=== PATIENT | female | born 1965 | race Caucasian/White ===

== ENCOUNTER 2016-12-26 10:55 | Inpatient (IN) | payer OTHER ==
[~2016-12-26] VITALS: Ht 162.6 cm; Wt 78.2 kg
[2016-12-26 12:02] LABS: BASOPHIL 0.2 % (0-2); EOSINOPHIL 0.2 % (0-5); HCT 29.1 % (37.0-47.0); MCH 34.6 pg (25.0-31.0); MCHC 34.4 g/dL (32.0-36.0); MCV 100.7 fL (78.0-100.0); MONOCYTE 8.5 % (0-12); NEUTROPHIL 79.1 % (41-80); PLT 315 K/uL (150-400); RBC 2.89 M/uL (4.20-5.40); RDW 13.1 % (11.5-14.0)
[2016-12-26 12:17] LABS: ALBUMIN 2.6 g/dL (3.5-5.0); BILIRUBIN - TOTAL 0.2 mg/dL (0.1-1.0); CREATININE 1.1 mg/dL (0.5-1.0); GLOBULIN (CALCULATION) 2.4 g/dL (2.2-4.2); POTASSIUM 3.3 mmol/L (3.5-5.1)
[2016-12-26 13:32] LABS: BILIRUBIN NEGATIVE (NEGATIVE); BLOOD TRACE-INTACT Ery/uL (NEGATIVE); CLARITY CLEAR (CLEAR); COLOR YELLOW (YELLOW); GLUCOSE (U) NORMAL (NORMAL); KETONE (U) TRACE mg/dL (NEGATIVE); LEUKOCYTES 2+ Leu/uL (NEGATIVE); NITRITE POSITIVE (NEGATIVE); PROTEIN 2+ mg/dL (NEGATIVE); UROBILINOGEN 0.2 mg/dL (0.2-1.0); pH 5.5 (5.0-9.0)
[2016-12-26 13:38] LABS: URINARY WBC 20-50
[2016-12-26 13:39] LABS: BACTERIA 4+; SQUAMOUS EPITHELIAL CELLS 20-50
[2016-12-26 15:47] LABS: LACTIC ACID 0.6 mmol/L (0.5-2.2)
[2016-12-27 04:52] LABS: HCT 27.1 % (37.0-47.0); HGB 9.1 g/dl (12.5-16.0); MCH 33.8 pg (25.0-31.0); MCHC 33.6 g/dL (32.0-36.0); MCV 100.7 fL (78.0-100.0); RBC 2.69 M/uL (4.20-5.40); WBC 5.6 K/uL (4.0-10.5)
[2016-12-27 05:10] LABS: CREATININE 1.1 mg/dL (0.5-1.0); POTASSIUM 3.7 mmol/L (3.5-5.1)
[2016-12-28 06:33] LABS: HCT 26.8 % (37.0-47.0); HGB 9.1 g/dl (12.5-16.0); MCH 34.2 pg (25.0-31.0); MCV 100.8 fL (78.0-100.0); MPV 8.4 fL (6.0-9.5); RBC 2.66 M/uL (4.20-5.40); RDW 13.2 % (11.5-14.0); WBC 4.2 K/uL (4.0-10.5)
[2016-12-28 07:08] LABS: CREATININE 1.1 mg/dL (0.5-1.0)
== END 2016-12-28 12:54 | disposition home or self-care (01) | DRG 872 ==
LOC: FER 10:55 → FMS 14:41
PROVIDERS: Emergency Medicine; ADMIT Internal Medicine
DX: A41.9 Sepsis, unspecified organism (principal); C50.912 Malignant neoplasm of unspecified site of left female breast; N39.0 Urinary tract infection, site not specified; I10 Essential (primary) hypertension; B96.20 Unspecified Escherichia coli [E. coli] as the cause of diseases classified elsewhere; E86.0 Dehydration; J44.9 Chronic obstructive pulmonary disease, unspecified; J45.909 Unspecified asthma, uncomplicated; F17.210 Nicotine dependence, cigarettes, uncomplicated
CPT/HCPCS: 36415; 71010; 80048; 80053; 81001; 83605; 85025; 87040; 87077; 87088; 87186; 87205; 87804; 87899; J1170; J1644; J1956; J2405

== ENCOUNTER 2017-05-07 02:20 | Emergency (ER) | payer OTHER | END 2017-05-07 04:08 | disposition home or self-care (01) | LOC: FER 02:20 | DX: I10 Essential (primary) hypertension (principal); R51 Headache; R44.3 Hallucinations, unspecified; R20.2 Paresthesia of skin; J44.9 Chronic obstructive pulmonary disease, unspecified; Z85.841 Personal history of malignant neoplasm of brain; Z98.890 Other specified postprocedural states | CPT/HCPCS: 70450 ==